=== PATIENT | female | born 1970 | race Caucasian/White ===

== ENCOUNTER 2018-01-14 07:39 | Emergency (ER) | payer BC, OTHER ==
[2018-01-14 08:29] LABS: pH (venous) 7.4 (7.35-7.45)
[2018-01-14 08:30] LABS: Base Excess -2.6 mEq/L (-2 - +2)
[2018-01-14 08:37] LABS: #Basophils 0.1 thou/uL (0.0-0.2); #Eosinphils 0.2 thou/uL (0.0-0.7); #Lymphocytes 1.7 thou/uL (1.20-3.40); #Monocytes 0.5 thou/uL (0.11-0.59); #Neutrophils 3.2 thou/uL (1.40-6.50); %Eosinophils 3.2 % (0.0-10.0); %Lymphocytes 29.7 % (21.0-51.0); %Monocytes 8.5 % (0.0-10.0); %Neutrophils 56.6 % (42.0-75.0); Hemoglobin 13.5 g/dL (12.0-16.0); Mean Corpuscular HGB CONC 33.7 g/dL (32.0-36.0); Mean Corpuscular Hemoglobin 31.9 pg (27.0-31.0); Mean Corpuscular Volume 94.7 fl (81.0-99.0); Mean Platelet Volume 7.7 fL (7.4-10.4); Platelet Count 341 thou/uL (130-400); RBC Distribution Width 12.2 % (11.5-14.5); Red Blood Cell (RBC) Count 4.24 mill/uL (4.20-5.40); White Blood Cell (WBC) Count 5.6 thou/uL (4.8-10.8)
[2018-01-14 08:42] LABS: ALT (SGPT) 19 U/L (8-55); AST (SGOT) 18 U/L (5-34); Albumin 4.1 g/dL (3.5-5.0); Alkaline Phosphatase 92 U/L (40-150); Anion Gap 16 mmol/L (10-20); BUN (Urea Nitrogen) 13 mg/dL (7.0-18.7); Bilirubin, Total 0.2 mg/dL (0.2-1.2); Calc. Creatinine Clearance 0 mL/min (70-130); Calcium 9.1 mg/dL (7.8-10.44); Carbon Dioxide 22 mmol/L (22-29); Chloride 107 mmol/L (98-107); Estimated GFR-MDRD 90; Globulin 3.1 g/dL (2.4-3.5); Glucose 80 mg/dL (70-105); Protein, Total 7.2 g/dL (6.0-8.3); Sodium 142 mmol/L (136-145)
[2018-01-14 08:44] LABS: CKMB 0.8 ng/mL (0-6.6); Troponin I Less than 0.010 ng/mL (< 0.028)
[2018-01-14] MEDS ORDERED: Lorazepam 2 MG/ML VIAL ONE (09:03)
--- NOTE | 2018-01-14 20:36 | RAD ---
PORTABLE CHEST 01/14/18 An AP portable film at 0805 is compared with a 08/12/12 study from [facility]. The heart is normal in size. The lungs are clear. No lobar infiltrate or effusion was seen. Some mini mal left basilar haziness is probably a combination of atelectasis and the patient being turned sligh tly. IMPRESSION: No acute findings. POS: HOME
== END 2018-01-14 09:55 | disposition home or self-care (01) ==
LOC: BURERS 07:39
DX: F41.9 Anxiety disorder, unspecified (principal); E03.9 Hypothyroidism, unspecified; F32.9 Major depressive disorder, single episode, unspecified; Z87.891 Personal history of nicotine dependence; Z79.899 Other long term (current) drug therapy
CPT/HCPCS: 71045; 80053; 82553; 82805; 83690; 84484; 85025; 85379; 93005; 94760; 96374; J2060

== ENCOUNTER 2020-05-05 07:23 | Outpatient (CLI) | payer OTHER ==
[2020-05-05 08:07] LABS: Anion Gap 12 mmol/L (10-20); BUN (Urea Nitrogen) 7 mg/dL (7.0-18.7); Calc. Creatinine Clearance 0 mL/min (70-130); Calcium 9.2 mg/dL (7.8-10.44); Carbon Dioxide 29 mmol/L (22-29); Chloride 101 mmol/L (98-107); Estimated GFR-MDRD 90; Glucose 94 mg/dL (70-105); Sodium 140 mmol/L (136-145)
[2020-05-05 08:23] LABS: Potassium 2.3 mmol/L (3.5-5.1)
--- NOTE | 2020-05-05 18:25 | RAD ---
CHEST TWO VIEWS: Date: 05-05-2020 Comparison: 01-07-2020 FINDINGS: The heart is normal in size. There are no effusions or signs of vascular congestion. There is no major lobar infiltrate, however, there is some minimal linear streaking in the lingula ne ar the cardiac apex and a questionable area of density in the right middle lobe. What appears to be a cardiac fat pad is seen in the right cardiophrenic angle. Normally I would completely dismiss it, ho wever, looking at the film done four months ago I see no evidence of such. Thus, depending upon the p kamini's symptoms, there may need to be follow up imaging depending upon her progress. IMPRESSION: Minor areas of streaking in the lingula and right middle lobe whose significance is unsure. See comme nts above regarding right cardiophrenic angle. Consider follow up chest x-ray or CT if symptoms do no t improve. Code T POS: HOME
== END 2020-05-05 07:24 | disposition home or self-care (01) ==
LOC: BURRAD 07:23
PROVIDERS: ATTEND Internal Medicine Endocrinology, Diabetes & Metabolism
DX: E87.6 Hypokalemia (principal); N18.1 Chronic kidney disease, stage 1; Z87.891 Personal history of nicotine dependence
CPT/HCPCS: 36415; 71046; 80048

== ENCOUNTER 2020-07-13 11:24 | Observation (INO) | payer OTHER ==
[2020-07-13 12:29] LABS: #Basophils 0.1 thou/uL (0.0-0.2); #Eosinphils 0.3 thou/uL (0.0-0.7); #Monocytes 0.7 thou/uL (0.11-0.59); #Neutrophils 5.2 thou/uL (1.40-6.50); %Basophils 0.9 % (0.0-1.0); %Eosinophils 3.5 % (0.0-10.0); %Lymphocytes 24.3 % (21.0-51.0); %Monocytes 8.7 % (0.0-10.0); %Neutrophils 62.6 % (42.0-75.0); Hemoglobin 12.4 g/dL (12.0-16.0); Mean Corpuscular HGB CONC 32.7 g/dL (32.0-36.0); Mean Corpuscular Hemoglobin 32.2 pg (27.0-31.0); Mean Corpuscular Volume 98.7 fL (78.0-98.0); Mean Platelet Volume 7.4 fL (7.4-10.4); Platelet Count 210 thou/uL (130-400); RBC Distribution Width 12.5 % (11.5-14.5); Red Blood Cell (RBC) Count 3.85 mill/uL (4.20-5.40); White Blood Cell (WBC) Count 8.4 thou/uL (4.8-10.8)
[2020-07-13 12:47] LABS: ALT (SGPT) 19 U/L (8-55); AST (SGOT) 18 U/L (5-34); Albumin 4.1 g/dL (3.5-5.0); Alkaline Phosphatase 79 U/L (40-110); Anion Gap 15 mmol/L (10-20); BUN (Urea Nitrogen) 12 mg/dL (7.0-18.7); Bilirubin, Total 0.3 mg/dL (0.2-1.2); Calc. Creatinine Clearance 0 mL/min (70-130); Calcium 9.5 mg/dL (7.8-10.44); Carbon Dioxide 27 mmol/L (22-29); Chloride 99 mmol/L (98-107); Estimated GFR-MDRD 73; Globulin 2.7 g/dL (2.4-3.5); Glucose 94 mg/dL (70-105); Magnesium 2.1 mg/dL (1.6-2.6); Protein, Total 6.8 g/dL (6.0-8.3); Sodium 138 mmol/L (136-145)
[2020-07-13 12:56] LABS: Potassium 2.7 mmol/L (3.5-5.1)
[2020-07-13] MEDS ORDERED: Potassium Chloride 20 MEQ TAB ONE (14:15)
[2020-07-13] MEDS ORDERED: Potassium Chloride 20 MEQ/100 ML PREMIX BAG IVPB PRN (17:08)
[2020-07-13] MEDS: Bupropion 150 MG SR TAB PO SCH (20:52)
[2020-07-13] MEDS ORDERED: Atorvastatin Calcium 10 MG TAB PO SCH (21:00)
[2020-07-13 21:58] LABS: ALT (SGPT) 14 U/L (8-55); AST (SGOT) 16 U/L (5-34); Albumin 3.7 g/dL (3.5-5.0); Alkaline Phosphatase 69 U/L (40-110); Anion Gap 13 mmol/L (10-20); BUN (Urea Nitrogen) 12 mg/dL (7.0-18.7); Bilirubin, Total 0.3 mg/dL (0.2-1.2); Calc. Creatinine Clearance 10 mL/min (70-130); Calcium 8.4 mg/dL (7.8-10.44); Carbon Dioxide 26 mmol/L (22-29); Chloride 103 mmol/L (98-107); Estimated GFR-MDRD 78; Globulin 2.4 g/dL (2.4-3.5); Glucose 106 mg/dL (70-105); Potassium 3.2 mmol/L (3.5-5.1); Protein, Total 6.1 g/dL (6.0-8.3); Sodium 139 mmol/L (136-145)
[2020-07-14 05:38] LABS: Anion Gap 16 mmol/L (10-20); BUN (Urea Nitrogen) 11 mg/dL (7.0-18.7); Calc. Creatinine Clearance 136 mL/min (70-130); Calcium 8.2 mg/dL (7.8-10.44); Carbon Dioxide 21 mmol/L (22-29); Chloride 105 mmol/L (98-107); Estimated GFR-MDRD 90; Glucose 85 mg/dL (70-105); Sodium 139 mmol/L (136-145)
[2020-07-14 05:56] LABS: Potassium 2.8 mmol/L (3.5-5.1)
--- NOTE | 2020-07-14 06:23 | HP ---
HISTORY OF PRESENT ILLNESS: A 50-year-old female patient admitted to [facility] in [place], [facility] of hypokalemia. She was told through routine followup blood work and to present to the emergency room because of potassium of 2.7. Hypokalemia is a chronic condition for this patient. Workup is in progress. She has had admissions for hypokalemia, 4 admissions prior to this in 2019. She is being followed by Renal, Dr. Mckeon, who suspects a non renal etiology. She had a colonoscopy on 10/13/2019 that was normal except for some benign polyps. Her PCP is Dr. Mckoy. She takes potassium chloride orally 40 mEq four times a day. CURRENT MEDICATIONS: 1. Potassium chloride 40 mEq q.i.d. 2. Lipitor 10 mg daily. 3. Pantoprazole 40 mg daily. 4. Zoloft 50 mg daily. 5. Bupropion b.i.d. PAST MEDICAL HISTORY: Chronic hypokalemia, GERD, and anxiety. FAMILY HISTORY: Positive for colon cancer. SOCIAL HISTORY: She currently smokes about 1 to 3 cigarettes daily, some days none. She is trying to quit smoking. Alcohol, occasional social drinker. ALLERGIES: INCLUDE TAPE, LATEX, AND MORPHINE. REVIEW OF SYSTEMS: CONSTITUTIONAL: Denies fever, chills, sweats, appetite change, or weight gain. She has however lost about 25 pounds over the last 6 to 8 months. She does complain of fatigue. EYES: Denies vision changes, eye pain, discharge or redness. ENT: Denies hearing loss, ear pain, URI symptoms or sore throat. RESPIRATORY: Denies cough, dyspnea, wheeze, or asthma. CV: Denies chest pain, dyspnea on exertion, PND, orthopnea, edema, or claudication. GI: Denies constipation, diarrhea, indigestion, dysphagia, food allergies or intolerances. : Denies frequency, dysuria, nocturia, or incontinence. MUSCULOSKELETAL: She reports muscle weakness. Denies joint pain or joint swelling. SKIN: No rash or lesion. NEURO: Denies dizziness, syncope, headache, ataxia or confusion. She does report weakness. PSYCH: Past medical history of anxiety. PHYSICAL EXAMINATION: GENERAL APPEARANCE: Alert, oriented x3, well appearing, no acute distress. EYES: Conjunctiva clear. No discharge. PERRLA. EOMs intact. Oral cavity, moist mucous membranes. No ulcer or lesion. Normal dentition. NECK: Thyroid, supple. No lymphadenopathy. No JVD. No carotid bruit. No thyromegaly. CV: Regular rate and rhythm. Normal S1, S2. No murmur. RESPIRATIONS: Clear to auscultation. Good air entry bilaterally. No wheeze or crackles. ABDOMEN: Soft, nontender. No masses or megaly. Normal bowel sounds. NEURO: CN 2 through 12 grossly intact. Motor function normal. SKIN: Normal. No rash. PSYCH: Appropriate mood and affect. Normal speech. No thought disorder. LABORATORY DATA: Admission Labs: WBCs 8.4, H and H 12.4 and 38, platelets 210. Sodium 138, potassium 2.7, chloride 99, CO2 of 27, BUN 12, creatinine 0.83, glucose 94. ASSESSMENT: Hypokalemia of unknown etiology. PLAN: IV potassium supplementation, once normalized may likely discharge tomorrow. Job ID: [id number]
[2020-07-14] MEDS ORDERED: Potassium Chloride 20 MEQ/100 ML PREMIX BAG ONE ×2 (06:42→09:57)
[2020-07-14] MEDS ORDERED: Potassium Chloride 20 MEQ/100 ML PREMIX BAG IVPB SCH (07:30)
[2020-07-14] MEDS ORDERED: NS 0.9% w/ 40 MEQ KCL 1,000 ML IV SCH (07:45)
[2020-07-14] MEDS ORDERED: Potassium Chloride 20 MEQ TAB PO SCH ×2 (08:00→17:00)
[2020-07-14] MEDS: Potassium Chloride 20 MEQ TAB PO SCH ×2 (08:05→11:44)
[2020-07-14] MEDS: Bupropion 150 MG SR TAB PO SCH (08:08)
[2020-07-14] MEDS ORDERED: POTASSIUM CHLORIDE 40 MEQ PO SCH (09:00)
[2020-07-14 12:15] LABS: Anion Gap 14 mmol/L (10-20); BUN (Urea Nitrogen) 8 mg/dL (7.0-18.7); Calc. Creatinine Clearance 132 mL/min (70-130); Calcium 8.5 mg/dL (7.8-10.44); Carbon Dioxide 21 mmol/L (22-29); Chloride 107 mmol/L (98-107); Estimated GFR-MDRD 87; Glucose 83 mg/dL (70-105); Potassium 3.8 mmol/L (3.5-5.1); Sodium 138 mmol/L (136-145)
[2020-07-14 12:45] VITALS: BP 111/61; TEMP 98.6
[2020-07-14 17:02] LABS: SARS-CoV-2 MS2 Positive; SARS-CoV-2 N Gene Negative; SARS-CoV-2 S Gene Negative; SARS-CoV-2 by NAA Not Detected (NotDetected); SARS-CoV-2 orf1ab Negative
--- NOTE | 2020-07-15 04:44 | DIS ---
DATE OF ADMISSION: 07/13/2020 DATE OF DISCHARGE: 07/14/2020 ADMISSION DIAGNOSIS: Hypokalemia. SECONDARY DIAGNOSES: Dyslipidemia, gastroesophageal reflux disease, and anxiety with depression. PROCEDURES: None. HOSPITAL COURSE: A 50-year-old female, patient of Dr. Mckoy with chronic history of hypokalemia of unknown etiology, for which she has had several prior hospitalizations, presented to the [facility] Emergency Department at the direction of her primary care provider secondary to routine followup blood work revealing a critical potassium level of 2.7. The patient has been evaluated for this chronic condition by Endocrinology and Nephrology and has been on chronic potassium supplementation; most recently dosed at 40 mEq p.o. q.6 hours for the last 5-6 months. In review of her potassium level readings over the last two years, the highest reading that I see is 4.2 with numerous critical low values over this time. The patient was started on gentle IV potassium repletion in the emergency department and subsequently admitted to the floor. The patient resumed on gentle IV potassium repletion and had her basal dose of oral potassium increased to a level of 60 mEq p.o. q.6 hours. Her potassium was trended and has returned to a normal level at this time with potassium at 3.8. She reports to feel well otherwise and at her baseline and due to her potassium level returning back to her normal range, is amenable to discharge home with the specified increase in her basal oral dose. DISPOSITION: The patient will be discharged to her home setting and is encouraged to follow up with her primary care provider, Dr. Mckoy next week for repeat potassium level check. DISCHARGE MEDICATIONS: She will resume her usual home medications with one change being to take potassium 60 mEq p.o. q.6 hours. Job ID: [id number]
== END 2020-07-14 13:40 | disposition home or self-care (01) ==
LOC: BURERS 11:24 → BURMED 14:45
PROVIDERS: ADMIT Family Medicine; ATTEND Family Medicine
DX: E87.6 Hypokalemia (principal); E78.5 Hyperlipidemia, unspecified; K21.9 Gastro-esophageal reflux disease without esophagitis; F41.8 Other specified anxiety disorders; F32.9 Major depressive disorder, single episode, unspecified; F17.210 Nicotine dependence, cigarettes, uncomplicated; Z20.828 Contact with and (suspected) exposure to other viral communicable diseases; Z79.899 Other long term (current) drug therapy; Z80.0 Family history of malignant neoplasm of digestive organs; Z88.5 Allergy status to narcotic agent; Z91.040 Latex allergy status; Z91.048 Other nonmedicinal substance allergy status
CPT/HCPCS: 36415; 80048; 80053; 83735; 85025; 86769; 87635; 93005; 96365; 96366; G0378; J3480; U0003

== ENCOUNTER → 2020-08-08 | Emergency (ER) | payer OTHER ==
[~2020-08-08] MED LIST: NS 0.9% w/ 40 MEQ KCL 1,000 ML IV SCH; Ondansetron PF 4 MG/2 ML Vial ONE; Potassium Chloride 20 MEQ/100 ML PREMIX BAG ONE
== END ==
LOC: BURERS 16:05
DX: E87.6 Hypokalemia (principal); E78.2 Mixed hyperlipidemia; F41.9 Anxiety disorder, unspecified; F32.9 Major depressive disorder, single episode, unspecified; F17.210 Nicotine dependence, cigarettes, uncomplicated; Z79.899 Other long term (current) drug therapy
CPT/HCPCS: 96365; 96366; 96375; J2405; J3480

== ENCOUNTER 2020-08-19 09:06 | Emergency (ER) | payer OTHER ==
[2020-08-19 09:37] LABS: #Basophils 0.1 thou/uL (0.0-0.2); #Eosinphils 0.3 thou/uL (0.0-0.7); #Lymphocytes 2.1 thou/uL (1.20-3.40); #Monocytes 0.8 thou/uL (0.11-0.59); %Basophils 1.2 % (0.0-1.0); %Eosinophils 3.5 % (0.0-10.0); %Lymphocytes 24.8 % (21.0-51.0); %Monocytes 9.5 % (0.0-10.0); %Neutrophils 61.1 % (42.0-75.0); Hemoglobin 12.1 g/dL (12.0-16.0); Mean Corpuscular Hemoglobin 30.6 pg (27.0-31.0); Mean Corpuscular Volume 95.8 fL (78.0-98.0); Mean Platelet Volume 7.6 fL (7.4-10.4); Platelet Count 334 thou/uL (130-400); RBC Distribution Width 11.9 % (11.5-14.5); Red Blood Cell (RBC) Count 3.95 mill/uL (4.20-5.40); White Blood Cell (WBC) Count 8.3 thou/uL (4.8-10.8)
[2020-08-19] MEDS ORDERED: Potassium Chloride 20 MEQ/100 ML PREMIX BAG ONE (09:42)
[2020-08-19 09:53] LABS: ALT (SGPT) 23 U/L (8-55); AST (SGOT) 21 U/L (5-34); Albumin 4.3 g/dL (3.5-5.0); Alkaline Phosphatase 81 U/L (40-110); Anion Gap 16 mmol/L (10-20); BUN (Urea Nitrogen) 12 mg/dL (7.0-18.7); Bilirubin, Total 0.3 mg/dL (0.2-1.2); Calc. Creatinine Clearance 0 mL/min (70-130); Calcium 9.6 mg/dL (7.8-10.44); Carbon Dioxide 26 mmol/L (22-29); Chloride 97 mmol/L (98-107); Estimated GFR-MDRD 71; Globulin 2.6 g/dL (2.4-3.5); Glucose 100 mg/dL (70-105); Protein, Total 6.9 g/dL (6.0-8.3); Sodium 137 mmol/L (136-145)
[2020-08-19 09:55] LABS: Potassium 2.4 mmol/L (3.5-5.1)
[2020-08-19 10:05] LABS: Magnesium 2.2 mg/dL (1.6-2.6)
== END 2020-08-19 11:05 | disposition critical access hospital (66) ==
LOC: BURERS 09:06
DX: E87.6 Hypokalemia (principal); R94.31 Abnormal electrocardiogram [ECG] [EKG]; E78.5 Hyperlipidemia, unspecified; E78.00 Pure hypercholesterolemia, unspecified; F41.9 Anxiety disorder, unspecified; F32.9 Major depressive disorder, single episode, unspecified; F17.210 Nicotine dependence, cigarettes, uncomplicated; Z79.899 Other long term (current) drug therapy
CPT/HCPCS: 80053; 83690; 83735; 84484; 85025; 93005; 94760; 96365; J3480